=== PATIENT | male | born 1980 | race African-American/Black ===

== ENCOUNTER 2017-10-21 13:13 | Emergency (ER) | payer BC, OTHER ==
[2017-10-21 13:25] VITALS: BMI 25.4
[2017-10-21] MEDS ORDERED: SODIUM CHLORIDE 1,000 ML IV STA (14:11)
--- NOTE | 2017-10-21 14:12 | PDOC ---
History of Present Illness - General Chief Complaint: Blood Sugar Problem Stated Complaint: WEAKNESS (REFERRED) Time Seen by Provider: 10/21/17 14:10 History Source: Patient - History of Present Illness Associated Symptoms: reports: weakness. denies: cough, fever/chills, headaches , nausea/vomiting, shortness of breath Past History - Past Medical History Allergies/Adverse Reactions: Allergies Allergy/AdvReac Type Severity Reaction Status Date / Time Tetanus Vaccines and Toxoid Allergy Intermediate Swelling Verified 10/21/17 13: 22 [Tetanus Vaccines & Toxoid] Home Medications: Ambulatory Orders Lisinopril 0 mg PO DAILY 10/21/17 Metformin HCl 1,000 mg PO BID 10/21/17 COPD: No Diabetes: Yes (TYPE 2) - Suicide/Smoking/Psychosocial Hx Smoking History: Never smoked Hx Alcohol Use: No Drug/Substance Use Hx: No Substance Use Type: None Review of Systems - Review of Systems Constitutional: Yes: Weakness. No: Chills, Fever Respiratory: No: Cough, Shortness of Breath Cardiac (ROS): No: Chest Pain, Lightheadedness, Palpitations ABD/GI: Yes: Nausea. No: Constipated, Diarrhea, Vomiting, Abdominal cramping : No: Dysuria, Flank Pain, Hematuria Neurological: No: Headache, Dizziness *Physical Exam - Vital Signs Last Vital Signs Temp Pulse Resp BP Pulse Ox 98 F 88 19 135/68 100 10/21/17 13:22 10/21/17 13:22 10/21/17 13:22 10/21/17 13:22 10/21/17 13:22 - Physical Exam General Appearance: Yes: Appropriately Dressed. No: Apparent Distress HEENT: positive: Normal Voice Neck: positive: Supple Respiratory/Chest: negative: Respiratory Distress Gastrointestinal/Abdominal: positive: Soft. negative: Tender Integumentary: positive: Dry, Warm Neurologic: positive: Fully Oriented, Alert, Normal Mood/Affect ED Treatment Course - LABORATORY CBC & Chemistry Diagram: 10/21/17 15:00 10/21/17 15:00 Medical Decision Making - Medical Decision Making 10/21/17 14:12 37-year-old male, dx w/ DM 2 years ago, on metformin, sent from urgent care today with hyperglycemia after patient presented with increased fatigue and intermittent nausea for the past 4 days. FS was >300 in UC per pt. Denies vomiting, dizziness, abdominal pain, fever, chills, change in bowel movements or dysuria. States he is compliant w/ meds but admits to recently "eating a lot of bad foods" per pt. Denies any polydipsia/uria See exam Hyperglycemia in UC today Has intermittent fatigue and nausea x 4 days Pt well magnus and stable in ED w/ unremarkable exam -FS pending 10/21/17 14:29 FS stick over [address] Will [address] IV, start IV fluids and send labs 10/21/17 17:18 Rest of labs unremarkable, negative acetone and no gap. Final fingerstick 196. Patient reports feeling significantly better at this time. Will discharge with diet modification instructions. Will also give referral to Dr. Leavitt of endocrine and encourage PMD f/u *DC/Admit/Observation/Transfer Diagnosis at time of Disposition: Hyperglycemia - Discharge Dispostion Disposition: HOME Condition at time of disposition: Improved - Referrals Referrals: Jose Enrique Leavitt MD [Staff Physician] - - Patient Instructions Printed Discharge Instructions: DI for Hyperglycemia -- Adult, 'Diet Plate' May Help People With Diabetes Lose Weight Additional Instructions: It is important that you modify your diet given your history of diabetes. Refrain from a diet high in sugar, carbs and fat. Continue to take your medications as directed. Please follow-up with Dr. Leavitt of endocrinology and follow-up with your PMD - Post Discharge Activity
--- NOTE | 2017-10-21 14:16 | PDOC ---
*Physical Exam - Vital Signs Last Vital Signs Temp Pulse Resp BP Pulse Ox 98 F 88 19 135/68 100 10/21/17 13:22 10/21/17 13:22 10/21/17 13:22 10/21/17 13:22 10/21/17 13:22 - Physical Exam Comments: 10/21/17 14:16 The patient was examined by [CICI Starks] under my direct supervision. I personally evaluated the patient. I concur with the above findings and the plan of care.
[2017-10-21] MEDS ORDERED: INSULIN REGULAR HUMAN 100 UNITS/ML *VIAL IVPUSH ONE (14:29)
[2017-10-21] MEDS ORDERED: INSULIN REGULAR HUMAN 100 UNITS/ML *VIAL ONE (14:35)
[2017-10-21 15:19] LABS: BASO % 0.7 % (0-2.0); EOS % 0.8 % (0-4.5); HEMATOCRIT 37.7 % (35.4-49); HEMOGLOBIN 12.7 GM/dL (11.7-16.9); LYMPH % 38.3 % (8-40); MCH 26.4 pg (25.7-33.7); MCHC 33.6 g/dl (32.0-35.9); MEAN CELL VOLUME 78.5 fl (80-96); MEAN PLT VOLUME 8.7 fl (7.5-11.1); MONO % 9.7 % (3.8-10.2); NEUT % 50.5 % (42.8-82.8); PLATELET COUNT 152 K/MM3 (134-434); RBC 4.81 M/mm3 (4.00-5.60); RDW 12.8 % (11.9-15.9); WHITE BLOOD COUNT 3.7 K/mm3 (4.0-10.0)
[2017-10-21 15:56] LABS: ALBUMIN 3.8 g/dl (3.4-5.0); ANION GAP 6 (8-16); BILIRUBIN,TOTAL 0.5 mg/dL (0.2-1.0); BLOOD UREA NITROGEN 13 mg/dL (7-18); CALCIUM 8.3 mg/dL (8.5-10.1); CHLORIDE 96 mmol/L (98-107); CO2 29 mmol/L (21-32); CREATININE 0.9 mg/dL (0.7-1.3); POTASSIUM 4.2 mmol/L (3.5-5.1); SGOT/AST 17 U/L (15-37); SGPT/ALT 22 U/L (12-78); SODIUM 131 mmol/L (136-145); TOT PROT 7.1 g/dl (6.4-8.2)
[2017-10-21 15:57] LABS: ALK PHOS 55 U/L (45-117)
[2017-10-21 16:10] LABS: URINE APPEARANCE CLEAR; URINE BILIRUBIN NEGATIVE (NEGATIVE); URINE BLOOD NEGATIVE (NEGATIVE); URINE COLOR COLORLESS; URINE GLUCOSE (UA) 3+ (NEGATIVE); URINE KETONE NEGATIVE (NEGATIVE); URINE LEUK ESTERASE NEGATIVE (NEGATIVE); URINE NITRITE NEGATIVE (NEGATIVE); URINE PROTEIN NEGATIVE (NEGATIVE); URINE UROBILINOGEN NEGATIVE mg/dL (0.2-1.0)
[2017-10-21 16:40] LABS: GLUCOSE,RANDOM 467 mg/dL (74-106)
[2017-10-21 17:44] VITALS: BP 116/73; PULSE 72; TEMP 98.4
== END 2017-10-21 17:30 | disposition home or self-care (01) ==
LOC: JER 13:13
PROC: 3E033VG Introduction of Insulin into Peripheral Vein, Percutaneous Approach (ICD-10-PCS; principal; 2017-10-21)
PROC: 3E0337Z Introduction of Electrolytic and Water Balance Substance into Peripheral Vein, Percutaneous Approach (ICD-10-PCS; 2017-10-21)
DX: E11.65 Type 2 diabetes mellitus with hyperglycemia (principal)
CPT/HCPCS: 36415; 80053; 81003; 82009; 82962; 85025; 99283-25